=== PATIENT | female | born 1975 | race American Indian/Alaskan Native ===

== ENCOUNTER 2016-12-22 17:09 | Outpatient (CLI) | payer BC, MEDICAID ==
--- NOTE | 2016-12-23 08:21 | Ultrasound Report ---
BIOPHYSICAL PROFILE: INDICATION: well being. COMPARISON: None similar. TECHNIQUE: Transabdominal ultrasound with Doppler interrogation. 2 - breathing movements 2 - movements 2 - posture and tone 2 - Qualitative amniotic fluid volume 8 - TOTAL SCORE OF POSSIBLE 8 Heart Rate (bpm) 142
--- NOTE | 2016-12-23 08:27 | Ultrasound Report ---
OB ULTRASOUND GREATER THAN 14 WEEKS INDICATION: well being. COMPARISON: None similar. TECHNIQUE: Transabdominal grayscale ultrasound with Doppler interrogation. Gestation: Sil[place]re Position: Cephalic Amniotic Fluid: WNL (7-24 cm) JACOB = 14.4 cm Placenta: Anterior. Approximately 3 x 1.1 x 2.2 cm hypoechoic possible fibroid anterior to the placenta, images 14-18. Placental Grade: II Heart Rate: 142 BPM BPD: 9.1 cm = 36 w 6 d HC: 33.8 cm = 38 w 5 d AC: 34.4 cm = 38 w 2 d FL: 7.7 cm = 39 w 3 d HC/AC Ratio: 0.98 Cephalic Index: 83.4 Estimated Weight: 3493 grams Clinical age = 38 w 2 d EDC: 01/03/2017 US Gest. Age = 38 w 2 d EDC: 01/03/2017 CONCLUSION: Single, viable intrauterine gestation with ultrasound estimated age of 38 weeks and 2 days and EDC of 01/03/2017, currently in cephalic lie with details and few other findings, as above. Thank you for the opportunity to participate in this patient's care.
== END 2016-12-22 19:03 | disposition home or self-care (01) ==
LOC: TRG 17:09
PROVIDERS: ATTEND Obstetrics & Gynecology
DX: O09.523 Supervision of elderly multigravida, third trimester (principal); O47.1 False labor at or after 37 completed weeks of gestation; Z3A.38 38 weeks gestation of pregnancy
CPT/HCPCS: 76816; 76819

== ENCOUNTER 2016-12-30 20:30 | Inpatient (IN) | payer BC, MEDICAID ==
--- NOTE | 2016-12-30 22:31 | History and Physical Report ---
History of Present Illness Date of examination: 12/30/16 Date of admission: 12/30/16 20:30 History of present illness: Past History : 6 Term Births: 0 Premature Births: 1 Living Children: 1 Para: 1 Mult. Births: 0 Prev : 0 Aborta: 4 Elect. Ab: 3 Spont. Ab: 1 # 1 Delivery date: 1996 Weeks Gestation: 12w Delivery type: EAB # 2 Delivery date: 2008 Weeks Gestation: 35 Delivery type: Delivery location: [place] Sex: Female weight: 4#13 Comments: Induced for elevated b/p # 3 Delivery date: 2008 Weeks Gestation: 8w Delivery type: EAB # 4 Delivery date: 2011 Weeks Gestation: 6w Delivery type: EAB # 5 Delivery date: 2012 Weeks Gestation: 12w Delivery type: SAB Comments: no D&C Past Medical History: Hypertension hemauria - cleared through urology Past Surgical History: Appendectomy - 2004 Past Medical History Surgery (Non-bilingual instructor): Appendectomy - 2004 Abnormal PAP: negative GERONIMO Exposure: negative Infertility: negative Uterine Anomaly: negative Uterine Surgery (not C/S): negative Other Gynecologic Problems: negative Infection History Hx of STD: none HIV Risk Eval: no Hepatitis B Risk Eval: low risk Personal hx. of genital herpes: no Partner hx. of genital herpes: no Rash, Viral, or Febrile illness since last LMP? no Varicella/Chicken Pox Status: Previous Disease Genetic History ADVANCED MATERNAL AGE Congenital Heart Defect: Mom: no Dad: unknown Deondre Disease: Mom: no Dad: unknown Thalassemia Mom: no Dad: unknown Neural Tube Defect Mom: no Dad: unknown Down's Syndrome Mom: no Dad: unknown Mark Anthony-Sachs Mom: no Dad: unknown Sickle Cell Disease/Trait Mom: no Dad: unknown Hemophilia Mom: no Dad: unknown Muscular Dystrophy Mom: no Dad: unknown Cystic Fibrosis Mom: no Dad: unknown [place] Chorea Mom: no Dad: unknown Mental Retardation Mom: no Dad: unknown Fragile X Mom: no Dad: unknown Other Genetic/Chromosomal Disorder Mom: no Dad: unknown Child w/other defect Mom: no Dad: unknown Comments/Counseling: FOC adopted Enviromental Exposures Xray Exposure: no Medication, drug, or alcohol use since LMP: no Chemical/Other Exposure: no Exposure to Cat Liter: no Hx of Parvovirus (Fifth Disease): no Occupational Exposure to Children: none Current Allergies (reviewed today): No known allergies Past History - Obstetrical History Expected Date of Delivery: 01/03/17 Actual Gestation: 39 Week(s) 3 Day(s) : 6 Medications and Allergies Allergies Allergy/AdvReac Type Severity Reaction Status Date / Time No Known Allergies Allergy Unverified 12/22/16 18:57 Review of Systems All systems: negative - Vital Signs Vital signs: Vital Signs Pulse BP 86 142/76 12/30/16 21:41 12/30/16 21:41 Temp Pulse Resp BP Pulse Ox 92 H 151/81 89 12/30/16 22:25 12/30/16 22:13 12/30/16 22:25 - Physical Exam Breasts: Positive: deferred Cardiovascular: Regular rate Lungs: Positive: Clear to auscultation, Normal air movement Abdomen: Positive: other (obese) Genitourinary (Female): Positive: normal external genitalia, normal perenium Vulva: both: normal Uterus: Positive: other (difficult to palpate d/t body habitus) Anus/Rectum: Positive: normal perianal skin Extremities: Positive: edema (2+) Deep Tendon Reflex Grade: Normal +2 - Obstetrical FHR: category 1 Uterine Contraction Monitor Mode: External Cervical Dilatation: 0 Cervical Effacement Percentage: 0 station: 3 Uterine Contraction Frequency (min): -3 Uterine Contraction Pattern: Absent Results All other labs normal. Assessment and Plan - Patient Problems (1) 39 weeks gestation of Current Visit: Yes Status: Acute Plan to address problem: She admitted now for induction for CHTN controlled with Labetalol Cervidil (2) Hypertension affecting in third trimester Current Visit: Yes Status: Acute Plan to address problem: Continue Labetalol Check PIH labs (3) Advanced maternal age (AMA), 40 years or greater Current Visit: No Status: Acute (4) BMI 50.0-59.9, adult Current Visit: Yes Status: Acute
[2016-12-30] MEDS ORDERED: ZOFRAN IV PRN (22:38)
[2016-12-30] MEDS ORDERED: XYLOCAINE 2% INFILTRATI ONE (22:38)
[2016-12-30] MEDS ORDERED: MINERAL OIL PO PRN (22:38)
[2016-12-30] MEDS ORDERED: PHENERGAN PO PRN (22:38)
[2016-12-30] MEDS ORDERED: BRETHINE SUB-Q PRN (22:38)
[2016-12-30] MEDS ORDERED: ePHEDrine SULFATE IV PRN (22:38)
[2016-12-30] MEDS ORDERED: NARCAN 0.4 MG/1 ML IV PRN (22:38)
[2016-12-30] MEDS ORDERED: CERVIDIL VG ONE (22:38)
[2016-12-30] MEDS ORDERED: BRETHINE IVP PRN (22:38)
[2016-12-30] MEDS ORDERED: NUBAIN IV PRN (22:38)
[2016-12-30] MEDS ORDERED: STADOL IV PRN (22:38)
[2016-12-30] MEDS ORDERED: PITOCin/NS 20 UNIT/1000ML DRIP 20 UNITS/1,000 ML BAG IV SCH (23:00)
[2016-12-30 23:19] LABS: Hematocrit 34.6 % (30.3-42.9); Hemoglobin 11.2 gm/dl (10.1-14.3); Mean Corpuscular HGB Conc 32 % (30-34); Mean Corpuscular Hemoglobin 28 pg (28-32); Mean Corpuscular Volume 85 fl (79-97); Platelet Count 243 K/mm3 (140-440); Red Blood Count 4.09 M/mm3 (3.65-5.03); Red Cell Distribution Width 16.4 % (13.2-15.2); White Blood Count 10.4 K/mm3 (4.5-11.0)
[2016-12-30 23:42] LABS: Alanine Aminotransferase 16 units/L (7-56); Lactate Dehydrogenase 197 units/L (91-180); Uric Acid 5.2 mg/dL (3.5-7.6)
[2016-12-31 00:16] LABS: Bilirubin,Urine NEG (Negative); Blood,Urine MOD (Negative); Ketones,Urine NEG (Negative); Leukocyte Esterase,Urine NEG (Negative); Mucus,Urine FEW /HPF; Nitrite,Urine NEG (Negative); Protein,Urine <15 mg/dL mg/dL (Negative); Urobilinogen,Urine < 2.0 mg/dL (<2.0)
[2016-12-31] MEDS ORDERED: METHERGINE IM ONE (00:44)
--- NOTE | 2016-12-31 07:20 | Progress Note ---
Assessment and Plan Pt w/o complaint VSS FHR Category 1 Cervidil removed SVE 1-2,50,-2 OOB for AM care Breakfast P: will start pitocin per protocol @ 0900 aware of pt. Re-eval as needed Subjective - Subjective Date of service: 12/31/16 (cervidil removed) Patient reports: movement normal Objective - Vital Signs Vital Signs: Vital Signs - 12hr 12/30/16 12/30/16 12/30/16 21:41 21:45 21:50 Temperature Pulse Rate 86 85 93 H Respiratory Rate Blood Pressure 142/76 Blood Pressure [Right] O2 Sat by Pulse 96 96 Oximetry 12/30/16 12/30/16 12/30/16 21:55 21:57 22:00 Temperature Pulse Rate 99 H 89 91 H Respiratory Rate Blood Pressure Blood Pressure [Right] O2 Sat by Pulse 96 94 96 Oximetry 12/30/16 12/30/16 12/30/16 22:03 22:05 22:08 Temperature Pulse Rate 90 92 H 85 Respiratory Rate Blood Pressure Blood Pressure [Right] O2 Sat by Pulse 94 96 94 Oximetry 12/30/16 12/30/16 12/30/16 22:10 22:13 22:15 Temperature Pulse Rate 85 96 H 98 H Respiratory Rate Blood Pressure 151/81 Blood Pressure [Right] O2 Sat by Pulse 95 96 Oximetry 12/30/16 12/30/16 12/30/16 22:20 22:21 22:25 Temperature Pulse Rate 92 H 99 H 92 H Respiratory Rate Blood Pressure Blood Pressure [Right] O2 Sat by Pulse 95 94 89 Oximetry 12/30/16 12/30/16 12/30/16 22:34 22:35 22:39 Temperature Pulse Rate 100 H 96 H 94 H Respiratory Rate Blood Pressure 142/85 Blood Pressure [Right] O2 Sat by Pulse 96 96 Oximetry 12/30/16 12/30/16 12/30/16 22:43 22:58 23:05 Temperature 98.3 F Pulse Rate 90 93 H 93 H Respiratory 14 Rate Blood Pressure 143/85 141/83 Blood Pressure 141/83 [Right] O2 Sat by Pulse Oximetry 12/30/16 12/30/16 12/30/16 23:14 23:29 23:44 Temperature Pulse Rate 90 88 96 H Respiratory Rate Blood Pressure 146/71 138/75 140/83 Blood Pressure [Right] O2 Sat by Pulse Oximetry 12/30/16 12/31/16 12/31/16 23:59 00:13 00:28 Temperature Pulse Rate 94 H 92 H 99 H Respiratory Rate Blood Pressure 131/68 144/76 145/80 Blood Pressure [Right] O2 Sat by Pulse Oximetry 12/31/16 12/31/16 12/31/16 00:43 00:58 01:14 Temperature Pulse Rate 90 91 H 93 H Respiratory Rate Blood Pressure 133/74 131/71 88/66 Blood Pressure [Right] O2 Sat by Pulse Oximetry 12/31/16 12/31/16 12/31/16 01:29 01:43 01:58 Temperature Pulse Rate 88 88 83 Respiratory Rate Blood Pressure 144/85 141/81 144/78 Blood Pressure [Right] O2 Sat by Pulse Oximetry 12/31/16 12/31/16 12/31/16 02:13 02:28 02:43 Temperature Pulse Rate 88 86 91 H Respiratory Rate Blood Pressure 146/83 149/82 146/80 Blood Pressure [Right] O2 Sat by Pulse Oximetry 12/31/16 12/31/16 12/31/16 04:06 04:14 04:30 Temperature Pulse Rate 92 H 93 H 92 H Respiratory Rate Blood Pressure 138/73 130/68 146/72 Blood Pressure [Right] O2 Sat by Pulse Oximetry 12/31/16 12/31/16 12/31/16 04:45 05:00 05:13 Temperature Pulse Rate 83 92 H 88 Respiratory Rate Blood Pressure 140/79 141/82 147/80 Blood Pressure [Right] O2 Sat by Pulse Oximetry 12/31/16 12/31/16 12/31/16 05:28 05:45 06:00 Temperature Pulse Rate 86 84 86 Respiratory Rate Blood Pressure 143/77 144/77 141/75 Blood Pressure [Right] O2 Sat by Pulse Oximetry 12/31/16 12/31/16 06:15 07:14 Temperature Pulse Rate 95 H 92 H Respiratory Rate Blood Pressure 142/83 150/80 Blood Pressure [Right] O2 Sat by Pulse Oximetry - Exam Breasts: deferred Cardiovascular: Regular rate Lungs: Normal air movement Abdomen: Present: normal appearance, soft. Absent: distention, tenderness Uterus: Present: normal FHR: auscultation normal, category 1 Uterine Contraction Monitor Mode: External Cervical Dilatation: 1.5 Cervical Effacement Percentage: 50 station: -2 Uterine Contraction Pattern: Irregular Uterine Tone Measurement Phase: Resting Uterine Contraction Intensity: Mild Extremities: edema Deep Tendon Reflex Grade: Normal +2 - Labs Labs: Abnormal Labs 12/30/16 12/30/16 22:50 22:50 RDW 16.4 H Creatinine 0.6 L Lactate Dehydrogenase 197 H Laboratory Results - last 24 hr 12/30/16 12/30/16 12/30/16 22:50 22:50 22:50 WBC 10.4 RBC 4.09 Hgb 11.2 Hct 34.6 MCV 85 MCH 28 MCHC 32 RDW 16.4 H Plt Count 243 Creatinine 0.6 L Estimated GFR > 60 Uric Acid 5.2 AST 19 ALT 16 Lactate Dehydrogenase 197 H Urine Color Urine Turbidity Urine pH Ur Specific [place] Urine Protein Urine Glucose (UA) Urine Ketones Urine Blood Urine Nitrite Urine Bilirubin Urine Urobilinogen Ur Leukocyte Esterase Urine WBC (Auto) Urine RBC (Auto) U Epithel Cells (Auto) Urine Mucus Blood Type O POSITIVE Antibody Screen Negative 12/30/16 23:05 WBC RBC Hgb Hct MCV MCH MCHC RDW Plt Count Creatinine Estimated GFR Uric Acid AST ALT Lactate Dehydrogenase Urine Color Yellow Urine Turbidity Clear Urine pH 6.0 Ur Specific [place] 1.020 Urine Protein <15 mg/dl Urine Glucose (UA) Neg Urine Ketones Neg Urine Blood Mod Urine Nitrite Neg Urine Bilirubin Neg Urine Urobilinogen < 2.0 Ur Leukocyte Esterase Neg Urine WBC (Auto) 2.0 Urine RBC (Auto) 143.0 U Epithel Cells (Auto) 2.0 Urine Mucus Few Blood Type Antibody Screen
[2016-12-31] MEDS: PITOCin/NS 30 UNIT/500ML 30 UNITS/500 ML BAG IV SCH (09:16)
[2016-12-31] MEDS: NORMODYNE PO SCH ×2 (09:50→22:13)
--- NOTE | 2016-12-31 12:15 | Progress Note ---
Assessment and Plan Pt tolerating ctx well Pit @ 24mu SVE 1.5,40,-4 Discussed with pt serial induction. All questions addressed. Subjective - Subjective Date of service: 12/31/16 (tolerating ctx well) Patient reports: movement normal Objective - Vital Signs Vital Signs: Vital Signs - 12hr 12/31/16 12/31/16 12/31/16 00:13 00:28 00:43 Temperature Pulse Rate 92 H 99 H 90 Respiratory Rate Blood Pressure 144/76 145/80 133/74 Blood Pressure [Right] O2 Sat by Pulse Oximetry 12/31/16 12/31/16 12/31/16 00:58 01:14 01:29 Temperature Pulse Rate 91 H 93 H 88 Respiratory Rate Blood Pressure 131/71 88/66 144/85 Blood Pressure [Right] O2 Sat by Pulse Oximetry 12/31/16 12/31/16 12/31/16 01:43 01:58 02:13 Temperature Pulse Rate 88 83 88 Respiratory Rate Blood Pressure 141/81 144/78 146/83 Blood Pressure [Right] O2 Sat by Pulse Oximetry 12/31/16 12/31/16 12/31/16 02:28 02:43 04:06 Temperature Pulse Rate 86 91 H 92 H Respiratory Rate Blood Pressure 149/82 146/80 138/73 Blood Pressure [Right] O2 Sat by Pulse Oximetry 12/31/16 12/31/16 12/31/16 04:14 04:30 04:45 Temperature Pulse Rate 93 H 92 H 83 Respiratory Rate Blood Pressure 130/68 146/72 140/79 Blood Pressure [Right] O2 Sat by Pulse Oximetry 12/31/16 12/31/16 12/31/16 05:00 05:13 05:28 Temperature Pulse Rate 92 H 88 86 Respiratory Rate Blood Pressure 141/82 147/80 143/77 Blood Pressure [Right] O2 Sat by Pulse Oximetry 12/31/16 12/31/16 12/31/16 05:45 06:00 06:15 Temperature Pulse Rate 84 86 95 H Respiratory Rate Blood Pressure 144/77 141/75 142/83 Blood Pressure [Right] O2 Sat by Pulse Oximetry 12/31/16 12/31/16 12/31/16 07:14 07:15 09:19 Temperature 97.7 F Pulse Rate 92 H 98 H Respiratory 18 Rate Blood Pressure 150/80 139/70 Blood Pressure 150/80 [Right] O2 Sat by Pulse Oximetry 12/31/16 12/31/16 12/31/16 09:20 09:21 09:25 Temperature Pulse Rate 96 H 99 H 96 H Respiratory Rate Blood Pressure Blood Pressure [Right] O2 Sat by Pulse 94 94 96 Oximetry 12/31/16 12/31/16 12/31/16 09:30 09:35 09:40 Temperature Pulse Rate 97 H 96 H 95 H Respiratory Rate Blood Pressure 142/84 Blood Pressure [Right] O2 Sat by Pulse 95 96 96 Oximetry 12/31/16 12/31/16 12/31/16 09:44 09:45 09:50 Temperature Pulse Rate 93 H 96 H 98 H Respiratory Rate Blood Pressure 143/84 143/84 Blood Pressure [Right] O2 Sat by Pulse 94 94 95 Oximetry 12/31/16 12/31/16 12/31/16 09:51 09:55 09:57 Temperature Pulse Rate 102 H 96 H 102 H Respiratory Rate Blood Pressure Blood Pressure [Right] O2 Sat by Pulse 94 95 94 Oximetry 12/31/16 12/31/16 12/31/16 10:00 10:03 10:05 Temperature Pulse Rate 93 H 95 H 101 H Respiratory Rate Blood Pressure 139/80 Blood Pressure [Right] O2 Sat by Pulse 95 94 95 Oximetry 12/31/16 12/31/16 12/31/16 10:14 10:29 10:44 Temperature Pulse Rate 92 H 94 H 96 H Respiratory Rate Blood Pressure 154/94 152/77 140/75 Blood Pressure [Right] O2 Sat by Pulse Oximetry 12/31/16 12/31/16 12/31/16 11:21 11:23 11:24 Temperature 98.5 F Pulse Rate 91 H 87 92 H Respiratory Rate Blood Pressure 137/75 Blood Pressure 137/75 [Right] O2 Sat by Pulse 99 95 Oximetry 12/31/16 12/31/16 12/31/16 11:25 11:29 11:30 Temperature Pulse Rate 91 H 93 H 93 H Respiratory Rate Blood Pressure 121/75 Blood Pressure [Right] O2 Sat by Pulse 94 93 Oximetry 12/31/16 12/31/16 11:45 12:00 Temperature Pulse Rate 90 88 Respiratory Rate Blood Pressure 119/74 135/69 Blood Pressure [Right] O2 Sat by Pulse Oximetry - Exam Breasts: deferred Cardiovascular: Regular rate Lungs: Normal air movement Abdomen: Present: normal appearance, soft. Absent: distention, tenderness Uterus: Present: normal FHR: auscultation normal, category 1 Uterine Contraction Monitor Mode: External Cervical Dilatation: 1.5 Cervical Effacement Percentage: 40 station: -4 Uterine Contraction Pattern: Regular Uterine Contraction Intensity: Mild Extremities: edema Deep Tendon Reflex Grade: Normal +2 - Labs Labs: Abnormal Labs 12/30/16 12/30/16 22:50 22:50 RDW 16.4 H Creatinine 0.6 L Lactate Dehydrogenase 197 H Laboratory Results - last 24 hr 12/30/16 12/30/16 12/30/16 22:50 22:50 22:50 WBC 10.4 RBC 4.09 Hgb 11.2 Hct 34.6 MCV 85 MCH 28 MCHC 32 RDW 16.4 H Plt Count 243 Creatinine 0.6 L Estimated GFR > 60 Uric Acid 5.2 AST 19 ALT 16 Lactate Dehydrogenase 197 H Urine Color Urine Turbidity Urine pH Ur Specific [place] Urine Protein Urine Glucose (UA) Urine Ketones Urine Blood Urine Nitrite Urine Bilirubin Urine Urobilinogen Ur Leukocyte Esterase Urine WBC (Auto) Urine RBC (Auto) U Epithel Cells (Auto) Urine Mucus Blood Type O POSITIVE Antibody Screen Negative 12/30/16 23:05 WBC RBC Hgb Hct MCV MCH MCHC RDW Plt Count Creatinine Estimated GFR Uric Acid AST ALT Lactate Dehydrogenase Urine Color Yellow Urine Turbidity Clear Urine pH 6.0 Ur Specific [place] 1.020 Urine Protein <15 mg/dl Urine Glucose (UA) Neg Urine Ketones Neg Urine Blood Mod Urine Nitrite Neg Urine Bilirubin Neg Urine Urobilinogen < 2.0 Ur Leukocyte Esterase Neg Urine WBC (Auto) 2.0 Urine RBC (Auto) 143.0 U Epithel Cells (Auto) 2.0 Urine Mucus Few Blood Type Antibody Screen
[2016-12-31] MEDS ORDERED: LACTATED RINGERS 1,000 ML ONE ×2 (13:03→22:12)
[2016-12-31] MEDS: SUBLIMAZE IV PRN (13:05)
--- NOTE | 2016-12-31 16:53 | Progress Note ---
Assessment and Plan Ptin very good spirits SVE 1.5,50,-2 Pitocin off Ambulate, supper. Will start low dose pit @ 1999. All questions addressed with pt. aware and agrees with POC Subjective - Subjective Date of service: 12/31/16 (pitocin off ; low dose pit after PM care and supper) Patient reports: movement normal Objective - Vital Signs Vital Signs: Vital Signs - 12hr 12/31/16 12/31/16 12/31/16 04:45 05:00 05:13 Temperature Pulse Rate 83 92 H 88 Respiratory Rate Blood Pressure 140/79 141/82 147/80 Blood Pressure [Right] O2 Sat by Pulse Oximetry 12/31/16 12/31/16 12/31/16 05:28 05:45 06:00 Temperature Pulse Rate 86 84 86 Respiratory Rate Blood Pressure 143/77 144/77 141/75 Blood Pressure [Right] O2 Sat by Pulse Oximetry 12/31/16 12/31/16 12/31/16 06:15 07:14 07:15 Temperature 97.7 F Pulse Rate 95 H 92 H Respiratory 18 Rate Blood Pressure 142/83 150/80 Blood Pressure 150/80 [Right] O2 Sat by Pulse Oximetry 12/31/16 12/31/16 12/31/16 09:19 09:20 09:21 Temperature Pulse Rate 98 H 96 H 99 H Respiratory Rate Blood Pressure 139/70 Blood Pressure [Right] O2 Sat by Pulse 94 94 Oximetry 12/31/16 12/31/16 12/31/16 09:25 09:30 09:35 Temperature Pulse Rate 96 H 97 H 96 H Respiratory Rate Blood Pressure 142/84 Blood Pressure [Right] O2 Sat by Pulse 96 95 96 Oximetry 12/31/16 12/31/16 12/31/16 09:40 09:44 09:45 Temperature Pulse Rate 95 H 93 H 96 H Respiratory Rate Blood Pressure 143/84 Blood Pressure [Right] O2 Sat by Pulse 96 94 94 Oximetry 12/31/16 12/31/16 12/31/16 09:50 09:51 09:55 Temperature Pulse Rate 98 H 102 H 96 H Respiratory Rate Blood Pressure 143/84 Blood Pressure [Right] O2 Sat by Pulse 95 94 95 Oximetry 12/31/16 12/31/16 12/31/16 09:57 10:00 10:03 Temperature Pulse Rate 102 H 93 H 95 H Respiratory Rate Blood Pressure 139/80 Blood Pressure [Right] O2 Sat by Pulse 94 95 94 Oximetry 12/31/16 12/31/16 12/31/16 10:05 10:14 10:29 Temperature Pulse Rate 101 H 92 H 94 H Respiratory Rate Blood Pressure 154/94 152/77 Blood Pressure [Right] O2 Sat by Pulse 95 Oximetry 12/31/16 12/31/16 12/31/16 10:44 11:21 11:23 Temperature 98.5 F Pulse Rate 96 H 91 H 87 Respiratory Rate Blood Pressure 140/75 137/75 Blood Pressure 137/75 [Right] O2 Sat by Pulse 99 Oximetry 12/31/16 12/31/16 12/31/16 11:24 11:25 11:29 Temperature Pulse Rate 92 H 91 H 93 H Respiratory Rate Blood Pressure Blood Pressure [Right] O2 Sat by Pulse 95 94 93 Oximetry 12/31/16 12/31/16 12/31/16 11:30 11:45 12:00 Temperature Pulse Rate 93 H 90 88 Respiratory Rate Blood Pressure 121/75 119/74 135/69 Blood Pressure [Right] O2 Sat by Pulse Oximetry 12/31/16 12/31/16 15:44 15:47 Temperature 98.3 F Pulse Rate 86 Respiratory Rate Blood Pressure 134/74 Blood Pressure 134/74 [Right] O2 Sat by Pulse Oximetry - Exam Breasts: deferred Cardiovascular: Regular rate Abdomen: Present: normal appearance, soft. Absent: distention, tenderness Uterus: Present: normal FHR: auscultation normal, category 1 Uterine Contraction Monitor Mode: External Cervical Dilatation: 1.5 Cervical Effacement Percentage: 50 station: -2 Uterine Contraction Pattern: Regular Uterine Contraction Intensity: Mild Extremities: edema Deep Tendon Reflex Grade: Normal +2 - Labs Labs: Abnormal Labs 12/30/16 12/30/16 22:50 22:50 RDW 16.4 H Creatinine 0.6 L Lactate Dehydrogenase 197 H Laboratory Results - last 24 hr 12/30/16 12/30/16 12/30/16 22:50 22:50 22:50 WBC 10.4 RBC 4.09 Hgb 11.2 Hct 34.6 MCV 85 MCH 28 MCHC 32 RDW 16.4 H Plt Count 243 Creatinine Estimated GFR Uric Acid AST ALT Lactate Dehydrogenase Urine Color Urine Turbidity Urine pH Ur Specific [place] Urine Protein Urine Glucose (UA) Urine Ketones Urine Blood Urine Nitrite Urine Bilirubin Urine Urobilinogen Ur Leukocyte Esterase Urine WBC (Auto) Urine RBC (Auto) U Epithel Cells (Auto) Urine Mucus RPR Nonreactive Blood Type O POSITIVE Antibody Screen Negative 12/30/16 12/30/16 22:50 23:05 WBC RBC Hgb Hct MCV MCH MCHC RDW Plt Count Creatinine 0.6 L Estimated GFR > 60 Uric Acid 5.2 AST 19 ALT 16 Lactate Dehydrogenase 197 H Urine Color Yellow Urine Turbidity Clear Urine pH 6.0 Ur Specific [place] 1.020 Urine Protein <15 mg/dl Urine Glucose (UA) Neg Urine Ketones Neg Urine Blood Mod Urine Nitrite Neg Urine Bilirubin Neg Urine Urobilinogen < 2.0 Ur Leukocyte Esterase Neg Urine WBC (Auto) 2.0 Urine RBC (Auto) 143.0 U Epithel Cells (Auto) 2.0 Urine Mucus Few RPR Blood Type Antibody Screen
[2016-12-31] MEDS: AMBIEN PO PRN (22:13)
--- NOTE | 2017-01-01 08:20 | Progress Note ---
Assessment and Plan Pit off for diet and AM care. Pt OOB to chair for breakfast. BP 140-120/80-70 Will plan for pit per protocol, continue Labetalol po Eval as needed. Note: sve deferred until pt returns to bed after AM care. to be consulted Subjective - Subjective Date of service: 01/01/17 (low dose pit over night) Principal diagnosis: IUP @ 39w5d with CHTN; AMA ;BMI 50+ Day #2 IOL Patient reports: movement normal Objective - Vital Signs Vital Signs: Vital Signs - 12hr 12/31/16 12/31/16 12/31/16 20:50 20:55 20:57 Temperature Pulse Rate 97 H 90 95 H Respiratory Rate Blood Pressure Blood Pressure [Right] O2 Sat by Pulse 97 95 94 Oximetry 12/31/16 12/31/16 12/31/16 21:00 21:04 21:05 Temperature Pulse Rate 85 82 87 Respiratory Rate Blood Pressure Blood Pressure [Right] O2 Sat by Pulse 96 94 96 Oximetry 12/31/16 12/31/16 12/31/16 21:09 21:10 21:15 Temperature Pulse Rate 86 85 81 Respiratory Rate Blood Pressure Blood Pressure [Right] O2 Sat by Pulse 94 96 94 Oximetry 12/31/16 12/31/16 12/31/16 21:20 21:25 21:30 Temperature Pulse Rate 83 88 84 Respiratory Rate Blood Pressure Blood Pressure [Right] O2 Sat by Pulse 94 94 95 Oximetry 12/31/16 12/31/16 12/31/16 21:31 21:35 21:36 Temperature Pulse Rate 82 92 H 81 Respiratory Rate Blood Pressure Blood Pressure [Right] O2 Sat by Pulse 94 95 93 Oximetry 12/31/16 12/31/16 12/31/16 21:40 21:43 21:45 Temperature Pulse Rate 87 81 80 Respiratory Rate Blood Pressure Blood Pressure [Right] O2 Sat by Pulse 96 94 94 Oximetry 12/31/16 12/31/16 12/31/16 21:51 21:56 22:01 Temperature Pulse Rate 92 H 92 H 94 H Respiratory Rate Blood Pressure Blood Pressure [Right] O2 Sat by Pulse 96 96 98 Oximetry 12/31/16 12/31/16 12/31/16 22:06 22:11 22:13 Temperature Pulse Rate 93 H 91 H 90 Respiratory Rate Blood Pressure 123/72 Blood Pressure [Right] O2 Sat by Pulse 97 97 Oximetry 12/31/16 12/31/16 12/31/16 22:15 22:16 22:21 Temperature Pulse Rate 86 91 H 89 Respiratory Rate Blood Pressure 123/72 Blood Pressure [Right] O2 Sat by Pulse 97 97 Oximetry 12/31/16 12/31/16 12/31/16 22:26 22:31 22:36 Temperature Pulse Rate 85 88 91 H Respiratory Rate Blood Pressure Blood Pressure [Right] O2 Sat by Pulse 96 97 98 Oximetry 12/31/16 12/31/16 12/31/16 22:47 22:52 22:57 Temperature Pulse Rate 99 H 86 83 Respiratory Rate Blood Pressure Blood Pressure [Right] O2 Sat by Pulse 97 97 97 Oximetry 12/31/16 12/31/16 12/31/16 23:02 23:07 23:12 Temperature Pulse Rate 81 84 86 Respiratory Rate Blood Pressure Blood Pressure [Right] O2 Sat by Pulse 96 97 97 Oximetry 12/31/16 12/31/16 12/31/16 23:33 23:36 23:38 Temperature Pulse Rate 93 H 87 91 H Respiratory Rate Blood Pressure Blood Pressure [Right] O2 Sat by Pulse 97 94 98 Oximetry 12/31/16 01/01/17 01/01/17 23:43 01:35 01:38 Temperature 97.7 F Pulse Rate 94 H 83 Respiratory 18 Rate Blood Pressure 155/82 Blood Pressure [Right] O2 Sat by Pulse 95 Oximetry 01/01/17 01/01/17 07:05 07:09 Temperature 97 F L Pulse Rate 81 81 Respiratory 20 Rate Blood Pressure 142/80 Blood Pressure 142/80 [Right] O2 Sat by Pulse 100 Oximetry - Exam Breasts: deferred Cardiovascular: Regular rate Lungs: Normal air movement Abdomen: Present: normal appearance, soft. Absent: distention, tenderness Uterus: Present: normal FHR: auscultation normal, category 1 Uterine Contraction Monitor Mode: External Uterine Contraction Pattern: Irregular Uterine Contraction Intensity: Mild Extremities: edema Deep Tendon Reflex Grade: Normal +2 - Labs Labs: Abnormal Labs 12/30/16 12/30/16 22:50 22:50 RDW 16.4 H Creatinine 0.6 L Lactate Dehydrogenase 197 H Laboratory Results - last 24 hr 12/30/16 22:50 RPR Nonreactive
[2017-01-01] MEDS ORDERED: LACTATED RINGERS 1,000 ML ONE (09:14)
[2017-01-01] MEDS: NORMODYNE PO SCH ×2 (09:34→22:29)
[2017-01-01] MEDS: LACTATED RINGERS 1,000 ML IV SCH (09:38)
[2017-01-01] MEDS: PITOCin/NS 30 UNIT/500ML 30 UNITS/500 ML BAG IV SCH ×3 (09:39→12:02)
--- NOTE | 2017-01-01 10:55 | Event Note ---
Date: 01/01/17 (difficult to trace FHT; RN reports poss chg in position) Due to location of FHTs RN ask for me to check position. Bedside US done confirmed vertex. Discussed all options with pt continue IOL with pitocin today , poss Cervidil tonight. Pt asks not to have operative intervention at this time. Dr. Chavez is enroute. FHTs Cat 1 @ this time. Irregular ctx Pit @ 4mu.
--- NOTE | 2017-01-01 13:06 | Event Note ---
Date: 01/01/17 Pt seen and examined by me today 41 yo A4 at 39 wk with chronic HTN on meds (Labetolol 200mg bid) and morbid obesity undergoing IOL for chronic HTN at term. She has completes 36 hours of induction. Cx exam by me is 1.5 cm, 30%, -3 and vertex, which is apparently very little change so far. Membranes cannot be ruptured at this time. tracing is Cat 1 and contractions are still irregular but present. Her previous delivery in 2008 was at 35 wk of a 4#13oz baby and this baby is significantly larger--her last EFW by [facility] was 5#4oz done 6wks ago at 11/22/16. In addition she failed her 1 hour and had 1 abnormal value on a 3hr GTT. She also says that her BMI has increased significantly in the 9 years since her last delivery--BMI is 50 and she has gained about 30 pounds this .. I offered her the option of continuing induction for another 24 hours or a primary c/s for a failed induction. After reflection and discussion, she elects to continue with induction for another 24 hours with the understanding that I think she will most likely be a delivery then. She has signed consents for BTL in the office.
--- NOTE | 2017-01-01 18:03 | Event Note ---
Date: 01/01/17 (OOB ambulating) discussed previously Pitocin off PM care, dinner, and ambulation. Will place Cervidil @ 1999. Pt is in agreement All questions addressed.
[2017-01-01] MEDS ORDERED: CERVIDIL VG ONE (19:00)
[2017-01-01] MEDS: AMBIEN PO PRN (23:49)
[2017-01-02] MEDS: LACTATED RINGERS 1,000 ML IV SCH ×3 (06:39→20:46)
--- NOTE | 2017-01-02 08:58 | Progress Note ---
Assessment and Plan - Patient Problems (1) 39 weeks gestation of Current Visit: Yes Status: Acute (2) BMI 50.0-59.9, adult Current Visit: Yes Status: Acute (3) Hypertension affecting in third trimester Current Visit: Yes Status: Acute Plan to address problem: -currently on day #4 of serial iol -c/s d/w pt, she desires to con't IOL at this time and c/s for or maternal indications ie distress (4) Advanced maternal age (AMA), 40 years or greater Current Visit: No Status: Acute Subjective - Subjective Date of service: 01/02/17 Principal diagnosis: IUP @ 39w6d with CHTN; AMA ;BMI 50+ Day #2 IOL Interval history: Pt examined by myself and cx still basically unchanged with some with the exception of a little more effacement at 50%. Again as with had Dr. Chavez, I d/ w operative delivery via c/s due to failed induction. Pt at this time states she has accepted she may need a c/s but does not desire to stop IOL at this time. Will allow pericare and proceed with induction at this time. Several minutes spent at bedside d/w pt possible delivery outcomes vaginal vs c/s. Pt expressed no questions at this time. Patient reports: new complaints, movement normal Objective - Vital Signs Vital Signs: Vital Signs - 12hr 01/01/17 01/01/17 01/01/17 21:08 21:13 21:14 Temperature 98.2 F Pulse Rate 88 89 84 Respiratory 22 Rate Blood Pressure 140/74 Blood Pressure [Right] O2 Sat by Pulse 97 97 Oximetry 01/01/17 01/01/17 01/01/17 21:18 21:23 21:26 Temperature Pulse Rate 85 98 H 90 Respiratory Rate Blood Pressure 150/73 Blood Pressure [Right] O2 Sat by Pulse 96 98 Oximetry 01/01/17 01/01/17 01/01/17 21:28 21:33 21:38 Temperature Pulse Rate 82 84 84 Respiratory Rate Blood Pressure Blood Pressure [Right] O2 Sat by Pulse 96 96 97 Oximetry 01/01/17 01/01/17 01/01/17 21:43 21:48 21:52 Temperature Pulse Rate 79 78 83 Respiratory Rate Blood Pressure Blood Pressure [Right] O2 Sat by Pulse 96 95 94 Oximetry 01/01/17 01/01/17 01/01/17 21:53 21:58 22:03 Temperature Pulse Rate 77 77 75 Respiratory Rate Blood Pressure Blood Pressure [Right] O2 Sat by Pulse 95 98 96 Oximetry 01/01/17 01/01/17 01/01/17 22:07 22:08 22:13 Temperature Pulse Rate 76 76 72 Respiratory Rate Blood Pressure Blood Pressure [Right] O2 Sat by Pulse 94 96 96 Oximetry 01/01/17 01/01/17 01/01/17 22:16 22:18 22:23 Temperature Pulse Rate 72 76 76 Respiratory Rate Blood Pressure Blood Pressure [Right] O2 Sat by Pulse 94 96 95 Oximetry 01/01/17 01/01/17 01/01/17 22:27 22:28 22:29 Temperature Pulse Rate 102 H 77 80 Respiratory Rate Blood Pressure 152/78 Blood Pressure [Right] O2 Sat by Pulse 94 96 Oximetry 01/01/17 01/01/17 01/01/17 22:33 22:38 22:43 Temperature Pulse Rate 82 77 78 Respiratory Rate Blood Pressure Blood Pressure [Right] O2 Sat by Pulse 96 97 98 Oximetry 01/01/17 01/01/17 01/01/17 22:48 22:53 22:58 Temperature Pulse Rate 85 83 81 Respiratory Rate Blood Pressure Blood Pressure [Right] O2 Sat by Pulse 98 98 97 Oximetry 01/01/17 01/01/17 01/01/17 23:03 23:08 23:13 Temperature Pulse Rate 74 86 79 Respiratory Rate Blood Pressure Blood Pressure [Right] O2 Sat by Pulse 98 97 98 Oximetry 01/01/17 01/01/17 01/01/17 23:18 23:23 23:28 Temperature Pulse Rate 90 75 84 Respiratory Rate Blood Pressure 153/81 Blood Pressure [Right] O2 Sat by Pulse 97 97 96 Oximetry 01/01/17 01/01/17 01/01/17 23:31 23:33 23:38 Temperature 97.6 F Pulse Rate 77 77 86 Respiratory 20 Rate Blood Pressure 137/69 Blood Pressure [Right] O2 Sat by Pulse 96 97 Oximetry 01/01/17 01/02/17 01/02/17 23:57 00:02 00:07 Temperature Pulse Rate 88 84 93 H Respiratory Rate Blood Pressure Blood Pressure [Right] O2 Sat by Pulse 97 96 96 Oximetry 01/02/17 01/02/1717 00:12 00:17 00:22 Temperature Pulse Rate 96 H 91 H 86 Respiratory Rate Blood Pressure Blood Pressure [Right] O2 Sat by Pulse 97 97 96 Oximetry 01/02/17 01/02/17 01/02/17 00:27 00:32 00:37 Temperature Pulse Rate 90 91 H 83 Respiratory Rate Blood Pressure Blood Pressure [Right] O2 Sat by Pulse 96 97 95 Oximetry 01/02/17 01/02/17 01/02/17 00:39 00:42 00:45 Temperature Pulse Rate 84 84 84 Respiratory Rate Blood Pressure Blood Pressure [Right] O2 Sat by Pulse 94 92 92 Oximetry 01/02/17 01/02/17 01/02/17 00:47 00:51 00:52 Temperature Pulse Rate 98 H 91 H 83 Respiratory Rate Blood Pressure Blood Pressure [Right] O2 Sat by Pulse 97 91 95 Oximetry 01/02/17 01/02/17 01/02/17 00:57 00:58 01:02 Temperature Pulse Rate 84 81 86 Respiratory Rate Blood Pressure Blood Pressure [Right] O2 Sat by Pulse 89 93 83 L Oximetry 01/02/17 01/02/17 01/02/17 01:38 01:43 01:48 Temperature Pulse Rate 80 90 93 H Respiratory Rate Blood Pressure Blood Pressure [Right] O2 Sat by Pulse 84 97 95 Oximetry 01/02/17 01/02/17 01/02/17 01:50 01:53 01:55 Temperature Pulse Rate 85 85 87 Respiratory Rate Blood Pressure Blood Pressure [Right] O2 Sat by Pulse 93 96 94 Oximetry 01/02/17 01/02/17 01/02/17 01:58 02:02 02:03 Temperature Pulse Rate 85 87 83 Respiratory Rate Blood Pressure Blood Pressure [Right] O2 Sat by Pulse 93 92 95 Oximetry 01/02/17 01/02/17 01/02/17 02:08 02:11 02:13 Temperature Pulse Rate 84 82 86 Respiratory Rate Blood Pressure Blood Pressure [Right] O2 Sat by Pulse 93 93 92 Oximetry 01/02/17 01/02/17 01/02/17 02:17 02:18 02:23 Temperature Pulse Rate 89 96 H 84 Respiratory Rate Blood Pressure Blood Pressure [Right] O2 Sat by Pulse 94 96 93 Oximetry 01/02/17 01/02/17 01/02/17 02:24 02:28 02:29 Temperature Pulse Rate 84 95 H 86 Respiratory Rate Blood Pressure Blood Pressure [Right] O2 Sat by Pulse 94 90 93 Oximetry 01/02/17 01/02/17 01/02/17 02:33 02:36 02:38 Temperature Pulse Rate 82 85 86 Respiratory Rate Blood Pressure Blood Pressure [Right] O2 Sat by Pulse 92 93 75 L Oximetry 01/02/17 01/02/17 01/02/17 02:43 02:48 02:53 Temperature Pulse Rate 86 87 85 Respiratory Rate Blood Pressure Blood Pressure [Right] O2 Sat by Pulse 91 94 94 Oximetry 01/02/17 01/02/17 01/02/17 02:54 02:58 03:02 Temperature Pulse Rate 85 98 H 92 H Respiratory Rate Blood Pressure Blood Pressure [Right] O2 Sat by Pulse 94 95 94 Oximetry 01/02/17 01/02/17 01/02/17 03:03 03:08 03:11 Temperature Pulse Rate 87 88 84 Respiratory Rate Blood Pressure Blood Pressure [Right] O2 Sat by Pulse 96 95 94 Oximetry 01/02/17 01/02/17 01/02/17 03:13 03:17 03:18 Temperature Pulse Rate 85 96 H 82 Respiratory Rate Blood Pressure Blood Pressure [Right] O2 Sat by Pulse 95 93 94 Oximetry 01/02/17 01/02/17 01/02/17 03:23 03:28 03:33 Temperature Pulse Rate 82 85 83 Respiratory Rate Blood Pressure Blood Pressure [Right] O2 Sat by Pulse 92 94 94 Oximetry 01/02/17 01/02/17 01/02/17 03:38 03:43 03:47 Temperature Pulse Rate 83 85 82 Respiratory Rate Blood Pressure 144/74 Blood Pressure [Right] O2 Sat by Pulse 94 93 Oximetry 01/02/17 01/02/17 01/02/17 03:48 03:53 03:57 Temperature Pulse Rate 88 86 88 Respiratory Rate Blood Pressure Blood Pressure [Right] O2 Sat by Pulse 95 94 93 Oximetry 01/02/17 01/02/17 01/02/17 03:58 04:03 04:08 Temperature Pulse Rate 86 85 85 Respiratory Rate Blood Pressure Blood Pressure [Right] O2 Sat by Pulse 93 94 78 L Oximetry 01/02/17 01/02/17 01/02/17 04:14 04:15 04:19 Temperature Pulse Rate 89 88 86 Respiratory Rate Blood Pressure Blood Pressure [Right] O2 Sat by Pulse 95 94 96 Oximetry 01/02/17 01/02/17 01/02/17 04:24 04:29 04:34 Temperature Pulse Rate 94 H 87 86 Respiratory Rate Blood Pressure Blood Pressure [Right] O2 Sat by Pulse 96 88 98 Oximetry 01/02/17 01/02/17 01/02/17 04:39 04:42 04:44 Temperature Pulse Rate 86 86 80 Respiratory Rate Blood Pressure Blood Pressure [Right] O2 Sat by Pulse 96 94 97 Oximetry 01/02/17 01/02/17 01/02/17 04:49 04:54 04:59 Temperature Pulse Rate 88 82 86 Respiratory Rate Blood Pressure Blood Pressure [Right] O2 Sat by Pulse 97 96 96 Oximetry 01/02/17 01/02/17 01/02/17 05:04 05:09 05:11 Temperature Pulse Rate 87 102 H 94 H Respiratory Rate Blood Pressure Blood Pressure [Right] O2 Sat by Pulse 96 95 94 Oximetry 01/02/17 01/02/17 01/02/17 05:14 05:17 05:19 Temperature Pulse Rate 85 81 86 Respiratory Rate Blood Pressure Blood Pressure [Right] O2 Sat by Pulse 94 94 95 Oximetry 01/02/17 01/02/17 01/02/17 05:38 05:40 05:45 Temperature Pulse Rate 88 81 76 Respiratory Rate Blood Pressure 158/89 Blood Pressure [Right] O2 Sat by Pulse 100 100 Oximetry 01/02/17 01/02/17 01/02/17 05:50 05:55 06:00 Temperature Pulse Rate 88 90 91 H Respiratory Rate Blood Pressure Blood Pressure [Right] O2 Sat by Pulse 99 99 99 Oximetry 01/02/17 01/02/17 01/02/17 06:04 06:05 06:08 Temperature 97.6 F Pulse Rate 94 H 79 82 Respiratory 20 Rate Blood Pressure 119/63 Blood Pressure [Right] O2 Sat by Pulse 92 97 Oximetry 01/02/17 01/02/17 01/02/17 06:10 06:12 06:15 Temperature Pulse Rate 79 82 79 Respiratory Rate Blood Pressure Blood Pressure [Right] O2 Sat by Pulse 96 94 95 Oximetry 01/02/17 01/02/17 01/02/17 06:17 06:20 06:25 Temperature Pulse Rate 85 89 84 Respiratory Rate Blood Pressure Blood Pressure [Right] O2 Sat by Pulse 93 98 100 Oximetry 01/02/17 01/02/17 01/02/17 06:27 06:30 06:35 Temperature Pulse Rate 82 84 100 H Respiratory Rate Blood Pressure Blood Pressure [Right] O2 Sat by Pulse 93 99 91 Oximetry 01/02/17 01/02/17 01/02/17 06:40 06:45 06:50 Temperature Pulse Rate 96 H 105 H 91 H Respiratory Rate Blood Pressure Blood Pressure [Right] O2 Sat by Pulse 93 99 99 Oximetry 01/02/17 01/02/17 01/02/17 06:55 07:00 07:05 Temperature Pulse Rate 79 79 93 H Respiratory Rate Blood Pressure Blood Pressure [Right] O2 Sat by Pulse 100 100 99 Oximetry 01/02/17 01/02/17 07:08 07:10 Temperature 98.1 F Pulse Rate 88 88 Respiratory 20 Rate Blood Pressure 149/89 Blood Pressure 149/89 [Right] O2 Sat by Pulse 99 Oximetry - Exam Abdomen: Present: normal appearance, soft Vulva: both: normal FHR: category 2 Cervical Dilatation: 1.5 Cervical Effacement Percentage: 50 station: -3 Uterine Contraction Pattern: Irregular Uterine Tone Measurement Phase: Resting Uterine Contraction Intensity: Mild Extremities: normal - Labs Labs: Abnormal Labs 12/30/16 12/30/16 22:50 22:50 RDW 16.4 H Creatinine 0.6 L Lactate Dehydrogenase 197 H
[2017-01-02] MEDS: NORMODYNE PO SCH ×2 (11:54→23:34)
[2017-01-02] MEDS: PITOCin/NS 30 UNIT/500ML 30 UNITS/500 ML BAG IV SCH ×7 (13:29→18:29)
--- NOTE | 2017-01-02 17:17 | Progress Note ---
Assessment and Plan - Patient Problems (1) 39 weeks gestation of Current Visit: Yes Status: Acute (2) BMI 50.0-59.9, adult Current Visit: Yes Status: Acute (3) Hypertension affecting in third trimester Current Visit: Yes Status: Acute Plan to address problem: -con't with serial IOL -1+mec noted with cat 2 tracing at times but status overall reassuring. -will start increasing the pitocin again now that internal monitors have been placed -need for operative delivery via primary c/s was again d/w pt and for failure to progress, failed induction, intolerance, maternal indications.Both expressed understanding and desire to con't with IOL as there has been significant cx change since this am when I examined pt. Plan of care understoodand questions were addressed and answered. (4) Advanced maternal age (AMA), 40 years or greater Current Visit: No Status: Acute Subjective - Subjective Date of service: 01/02/17 Principal diagnosis: IUP @ 39w6d with CHTN; AMA ;BMI 50+ Day #2 IOL Interval history: AROM done due to cat II tracing and times and need to have internal monitors.1+ very light mec noted. IUPC and ISE placed w/o difficulty. Pt now states that previous with 4lb baby was a 3 day induciton. Cx now 2-/-2. Patient reports: new complaints, movement normal, contractions, no loss of fluid, no vaginal bleeding Objective - Vital Signs Vital Signs: Vital Signs - 12hr 01/02/17 01/02/17 01/02/17 05:17 05:19 05:38 Temperature Pulse Rate 81 86 88 Respiratory Rate Blood Pressure 158/89 Blood Pressure [Right] O2 Sat by Pulse 94 95 Oximetry 01/02/17 01/02/17 01/02/17 05:40 05:45 05:50 Temperature Pulse Rate 81 76 88 Respiratory Rate Blood Pressure Blood Pressure [Right] O2 Sat by Pulse 100 100 99 Oximetry 01/02/17 01/02/17 01/02/17 05:55 06:00 06:04 Temperature Pulse Rate 90 91 H 94 H Respiratory Rate Blood Pressure Blood Pressure [Right] O2 Sat by Pulse 99 99 92 Oximetry 01/02/17 01/02/17 01/02/17 06:05 06:08 06:10 Temperature 97.6 F Pulse Rate 79 82 79 Respiratory 20 Rate Blood Pressure 119/63 Blood Pressure [Right] O2 Sat by Pulse 97 96 Oximetry 01/02/17 01/02/17 01/02/17 06:12 06:15 06:17 Temperature Pulse Rate 82 79 85 Respiratory Rate Blood Pressure Blood Pressure [Right] O2 Sat by Pulse 94 95 93 Oximetry 01/02/17 01/02/17 01/02/17 06:20 06:25 06:27 Temperature Pulse Rate 89 84 82 Respiratory Rate Blood Pressure Blood Pressure [Right] O2 Sat by Pulse 98 100 93 Oximetry 01/02/17 01/02/17 01/02/17 06:30 06:35 06:40 Temperature Pulse Rate 84 100 H 96 H Respiratory Rate Blood Pressure Blood Pressure [Right] O2 Sat by Pulse 99 91 93 Oximetry 01/02/17 01/02/17 01/02/17 06:45 06:50 06:55 Temperature Pulse Rate 105 H 91 H 79 Respiratory Rate Blood Pressure Blood Pressure [Right] O2 Sat by Pulse 99 99 100 Oximetry 01/02/17 01/02/17 01/02/17 07:00 07:05 07:08 Temperature Pulse Rate 79 93 H 88 Respiratory Rate Blood Pressure 149/89 Blood Pressure [Right] O2 Sat by Pulse 100 99 Oximetry 01/02/17 01/02/17 01/02/17 07:10 11:27 11:53 Temperature 98.1 F Pulse Rate 88 87 88 Respiratory 20 Rate Blood Pressure 144/81 155/87 Blood Pressure 149/89 [Right] O2 Sat by Pulse 99 Oximetry 01/02/17 01/02/17 01/02/17 11:54 12:21 12:50 Temperature 97.4 F L Pulse Rate 88 82 81 Respiratory 20 Rate Blood Pressure 155/87 159/88 173/85 Blood Pressure 155/87 [Right] O2 Sat by Pulse Oximetry 01/02/17 01/02/17 01/02/17 13:01 13:28 13:31 Temperature Pulse Rate 83 82 77 Respiratory Rate Blood Pressure 161/79 151/87 154/84 Blood Pressure [Right] O2 Sat by Pulse Oximetry 01/02/17 01/02/17 01/02/17 14:03 14:30 14:57 Temperature Pulse Rate 83 87 87 Respiratory Rate Blood Pressure 152/84 137/83 140/85 Blood Pressure [Right] O2 Sat by Pulse Oximetry 01/02/17 01/02/17 01/02/17 15:00 15:30 16:01 Temperature 98.3 F Pulse Rate 81 76 83 Respiratory 20 Rate Blood Pressure 150/84 135/80 Blood Pressure 138/78 [Right] O2 Sat by Pulse Oximetry 01/02/17 01/02/17 01/02/17 16:02 16:30 17:02 Temperature Pulse Rate 83 82 112 H Respiratory Rate Blood Pressure 138/78 146/86 161/95 Blood Pressure [Right] O2 Sat by Pulse Oximetry - Exam FHR: category 2 Cervical Dilatation: 2.5 Cervical Effacement Percentage: 60 station: -3 Uterine Contraction Pattern: Irregular Uterine Tone Measurement Phase: Resting - Labs Labs: Abnormal Labs 12/30/16 12/30/16 22:50 22:50 RDW 16.4 H Creatinine 0.6 L Lactate Dehydrogenase 197 H
[2017-01-02] MEDS: SUBLIMAZE IV PRN (19:11)
--- NOTE | 2017-01-02 19:36 | Progress Note ---
Assessment and Plan - Patient Problems (1) 39 weeks gestation of Current Visit: Yes Status: Acute (2) BMI 50.0-59.9, adult Current Visit: Yes Status: Acute (3) Hypertension affecting in third trimester Current Visit: Yes Status: Acute Plan to address problem: -cont serial IOL -bolus for epidural going -no change in station with adequate contractions -there has been some cervical change but pt still not in active phase of labor. Early decels noted but overall, status is reassuring. (4) Advanced maternal age (AMA), 40 years or greater Current Visit: No Status: Acute Subjective - Subjective Date of service: 01/02/17 Principal diagnosis: IUP @ 39w6d with CHTN; AMA ;BMI 50+ Day #2 IOL Interval history: Pt c/o pain and now desires epidural. cx ex now 3-/-2.Early decels noted on NST. Patient reports: new complaints, movement normal, contractions, no loss of fluid, no vaginal bleeding Objective - Vital Signs Vital Signs: Vital Signs - 12hr 01/02/17 01/02/17 01/02/17 11:27 11:53 11:54 Temperature 97.4 F L Pulse Rate 87 88 88 Respiratory 20 Rate Blood Pressure 144/81 155/87 155/87 Blood Pressure 155/87 [Right] 01/02/17 01/02/17 01/02/17 12:21 12:50 13:01 Temperature Pulse Rate 82 81 83 Respiratory Rate Blood Pressure 159/88 173/85 161/79 Blood Pressure [Right] 01/02/17 01/02/17 01/02/17 13:28 13:31 14:03 Temperature Pulse Rate 82 77 83 Respiratory Rate Blood Pressure 151/87 154/84 152/84 Blood Pressure [Right] 01/02/17 01/02/17 01/02/17 14:30 14:57 15:00 Temperature Pulse Rate 87 87 81 Respiratory Rate Blood Pressure 137/83 140/85 150/84 Blood Pressure [Right] 01/02/17 01/02/17 01/02/17 15:30 16:01 16:02 Temperature 98.3 F Pulse Rate 76 83 83 Respiratory 20 Rate Blood Pressure 135/80 138/78 Blood Pressure 138/78 [Right] 01/02/17 01/02/17 01/02/17 16:30 17:02 17:30 Temperature Pulse Rate 82 112 H 89 Respiratory Rate Blood Pressure 146/86 161/95 147/93 Blood Pressure [Right] 01/02/17 01/02/17 01/02/17 18:00 18:02 18:29 Temperature 98.4 F Pulse Rate 83 83 85 Respiratory 20 Rate Blood Pressure 143/92 170/94 Blood Pressure 143/92 [Right] 01/02/17 01/02/17 01/02/17 18:35 19:00 19:11 Temperature Pulse Rate 83 79 Respiratory 16 Rate Blood Pressure 163/92 151/87 Blood Pressure [Right] 01/02/17 01/02/17 01/02/17 19:12 19:15 19:31 Temperature 98.5 F Pulse Rate 95 H 81 Respiratory Rate Blood Pressure 158/91 156/82 Blood Pressure [Right] - Exam FHR: category 2 Cervical Dilatation: 3.5 Cervical Effacement Percentage: 60 Uterine Contraction Frequency (min): -2 Uterine Contraction Pattern: Regular (mVUs are adequate at this time) - Labs Labs: Abnormal Labs 12/30/16 12/30/16 22:50 22:50 RDW 16.4 H Creatinine 0.6 L Lactate Dehydrogenase 197 H
[2017-01-02] MEDS ORDERED: ePHEDrine SULFATE ONE (19:53)
--- NOTE | 2017-01-02 20:27 | Anesthesia Consultation ---
Anesthesia Consult and Med Hx Date of service: 01/02/17 - Airway Anesthetic Teeth Evaluation: Good ROM Head & Neck: Adequate Mental/Hyoid Distance: Adequate Mallampati Class: Class II Intubation Access Assessment: Probably Good - Pulmonary Exam CTA: Yes - Cardiac Exam Cardiac Exam: RRR - Pre-Operative Health Status ASA Pre-Surgery Classification: ASA3 Proposed Anesthetic Plan: Epidural, Spinal - Pulmonary Hx Asthma: No COPD: No - Cardiovascular System Hx Hypertension: Yes (chronic hypertension) - Central Nervous System Hx Seizures: No Hx Psychiatric Problems: No - Endocrine Hx Renal Disease: No Hx End Stage Renal Disease: No Hx Hypothyroidism: No Hx Hyperthyroidism: No - Hematic Hx Anemia: No Hx Sickle Cell Disease: No - Other Systems Hx Alcohol Use: No Hx Obesity: Yes (bmi >40) - Additional Comments Anesthesia Medical History Comments: advanced maternal age, +IUP
[2017-01-02] MEDS ORDERED: ePHEDrine SULFATE IV PRN (20:31)
[2017-01-02] MEDS ORDERED: NARCAN 2 MG/2 ML IV PRN (20:31)
[2017-01-02] MEDS ORDERED: fentaNYL-BUPIV 2 MCG/ML-0.125% 200 MCG/100 ML BAG EPIDURAL SCH (21:00)
[2017-01-02] MEDS ORDERED: PEPCID IV ONE (21:02)
[2017-01-02] MEDS ORDERED: REGLAN IV ONE (21:02)
[2017-01-02] MEDS ORDERED: BICITRA PO ONE (21:02)
--- NOTE | 2017-01-02 21:07 | Event Note ---
Date: 01/02/17 Will proceed to OR for primary c/s due to failure to progress and persistent catII tracing with deep variable decels.All risk, benefits, and alternatives were d/w questions were addressed and answered. Consents signed and placed on the chart. Pt will also have tubal ligation with c/s.
[2017-01-02] MEDS ORDERED: XYLOCAINE MPF 2% ONE ×2 (21:28→21:41)
[2017-01-02] MEDS ORDERED: MORPHINE ONE (21:44)
[2017-01-02] MEDS ORDERED: WATER FOR IRRIG STERILE IR ONE (21:45)
[2017-01-02] MEDS ORDERED: ZOFRAN ONE (21:45)
[2017-01-02] MEDS ORDERED: NACL 0.9% IR ONE (21:45)
[2017-01-02] MEDS ORDERED: VERSED ONE ×2 (21:51→22:33)
[2017-01-02] MEDS ORDERED: PITOCin/NS 20 UNIT/1000ML DRIP 20 UNITS/1,000 ML BAG IV SCH (22:00)
[2017-01-02] MEDS ORDERED: ANCEF/STERILE WATER 2 GM/20 ML 2 GM/20 ML SYRINGE IV NR (22:00)
[2017-01-02] MEDS ORDERED: LACTATED RINGERS 1,000 ML IV SCH (22:00)
[2017-01-02] MEDS ORDERED: SUBLIMAZE ONE (22:45)
[2017-01-02] MEDS ORDERED: MYLICON PO PRN (22:58)
[2017-01-02] MEDS ORDERED: TUCKS PAD TP PRN (22:58)
[2017-01-02] MEDS ORDERED: LANSINOH TP PRN (22:58)
[2017-01-02] MEDS ORDERED: D5LR 1,000 ML IV SCH (23:00)
[2017-01-02] MEDS ORDERED: SODIUM CHLORIDE FLUSH SYRINGE 10 ML IV PRN (23:00)
[2017-01-02] MEDS ORDERED: BENADRYL IV PRN (23:12)
[2017-01-02] MEDS ORDERED: MORPHINE IV PRN ×2 (23:12)
--- NOTE | 2017-01-02 23:12 | Post Anesthesia Evaluation ---
- Post Anesthesia Evaluation Patient Participated: Yes Airway Patent: Yes Stable Respiratory Function: Yes Nausea/Vomiting: No Temp > 96.8F: Yes Pain Manageable: Yes Adequeate Hydration: Yes Anesthesia Complications: No Block Receding Appropriately: Yes Patient on Ventilator: No
[2017-01-02] MEDS: TORADOL IV PRN (23:21)
--- NOTE | 2017-01-02 23:24 | Operative Report ---
Operative Report Operative Report: Date of procedure: 01/02/2017 Pre-operative diagnosis: 39 weeks gestation Advanced maternal age Chronic hypertension Failure to progress Morbid obesity intolerance to labor Post-operative diagnosis: Same Procedure name(s): Primary low transverse section via Pfannenstiel skin incision Bilateral tubal ligation via modified Mickey method Surgeon: Dr. Farmer Talent Development Analyst: SHALOM Anesthesia: Epidural EBL: 900 mL Urine output: 100 mL of clear urine at end of the procedure Fluids: 1 L Findings: Liveborn female infant weight 7 lbs. 1 oz. Apgars of 8 and 9 at one and 5 minutes Grossly normal fallopian tubes and ovaries bilaterally Indications: Patient presented for induction of labor for chronic hypertension and advanced maternal age. Patient was noted to be on day 4 of labor induction and which she progressed approximately 3 cm. Patient noted to have repetitive variables without cervical change. Decision made at this time to proceed with primary section. Procedure: Patient was taking to the operating room. Patient was then prepped and draped in sterile fashion after anesthesia was found to be adequate. A low transverse skin incision was made with the scalpel and carried down to the underlying layer of fascia with the Bovie. The fascia was then incised in the midline and this incision was extended bilaterally with the Bovie. The superior aspect of the fascia was grasped with Geovanna clamps tented upward and dissected off of the anterior rectus muscles with the scalpel. In similar fashion the inferior aspect of the fascia was grasped with Geovanna clamps tented upward and dissected off of the anterior rectus muscles. The rectus muscles were then bluntly divided in the midline. The peritoneum was identified and entered into sharply. The Trae retractor was placed The bladder blade was placed. The bladder flap was created using the Metzenbaum scissors. The bladder blade was replaced. A lower transverse uterine incision was made with the scalpel and extended bilaterally with the bandage scissors. Entry into the uterus noted meconium-stained fluid. The infant's head was then delivered atraumatically. The anterior shoulder and rest of infant delivered without difficulty. The umbilical cord was clamped x2. The cord was cut. The was then placed in sterile bassinet. The cord blood was collected The placenta was manually extracted in its entirety. The uterus was exteriorized and cleared of all clots and debris. The uterine incision was closed using 0 Vicryl in a running locking fashion. [id number] sutures of 0 Vicryl were then created along the uterine incision to secure excellent hemostasis. Attention was turned to the fallopian use bilaterally and which they were grasp with the Marylou clamp. A knuckle of tube was then suture ligated, transected, and ostia cauterized. This was done bilaterally. Excellent hemostasis was noted. The posterior cul-de-sac was copiously irrigated. The uterus was returned to the abdomen. The Trae retractor was removed from the abdomen after the gutters were also irrigated. The anterior rectus muscles were reapproximated using 3-0 Vicryl. The anterior rectus fascia was reapproximated using 0 Vicryl in a running fashion. The subcuticular fat was reapproximated using 2-0 Vicryl in a running fashion. The skin was reapproximated with 4-0 Monocryl in a subcuticular stitch. The patient tolerated the procedure well. Sponge lap and needle counts were all correct x3. Patient was taken to the recovery room awake and in stable condition.
[2017-01-03] MEDS: ANCEF/NS 1 GM/50 ML 1 GM/50 ML BAG IV SCH ×2 (05:59→14:35)
--- NOTE | 2017-01-03 08:36 | Progress Note ---
Assessment and Plan patient doing well <12hrs postop, dressing dry, lochia scant, pain well controlled. Arias draining adequate urine. VSSAF. H&H to be drawn @ 11am. Continue postop pathway. - Patient Problems (1) delivery delivered Current Visit: Yes Status: Acute (2) HTN (hypertension) Current Visit: Yes Status: Acute Qualifiers: Hypertension type: essential hypertension Qualified Code(s): I10 - Essential (primary) hypertension Subjective - Subjective Date of service: 01/03/17 Principal diagnosis: postop day #1 s/p c/s; CHTN, AMA, BMI 50+, failed IOL Patient reports: appetite normal, pain well controlled, no flatus, no bowel movement, no nauseated : doing well, bottle feeding Objective - Vital Signs Latest vital signs: Vital Signs Temp Pulse Resp BP BP Pulse Ox 01/03/17 04:57 98.7 F 88 20 120/70 01/03/17 01:05 98.6 F 94 H 20 137/73 01/03/17 00:05 98.4 F 76 16 135/74 93 01/03/17 00:00 75 16 133/71 92 01/02/17 23:45 71 15 156/88 94 01/02/17 23:41 74 17 150/88 93 01/02/17 23:40 74 19 150/88 92 01/02/17 23:35 72 16 140/85 95 01/02/17 23:34 84 147/84 01/02/17 23:30 78 18 147/84 91 01/02/17 23:21 97 H 20 130/72 93 01/02/17 23:15 89 19 129/82 95 01/02/17 23:13 87 15 138/73 94 01/02/17 23:09 90 14 114/62 95 01/02/17 23:05 99.3 F 105 H 16 114/62 97 01/02/17 23:04 96 01/02/17 20:58 98 H 163/83 01/02/17 20:50 98.2 F 18 01/02/17 20:43 93 H 128/63 01/02/17 20:27 93 H 145/77 01/02/17 20:25 97 H 147/85 01/02/17 20:23 86 147/85 01/02/17 20:21 93 H 147/82 01/02/17 20:19 87 139/74 01/02/17 20:17 98 H 145/86 01/02/17 20:16 98 H 97 01/02/17 20:15 84 151/82 01/02/17 20:13 83 153/82 01/02/17 20:12 81 154/82 01/02/17 20:11 86 97 01/02/17 20:07 83 156/87 01/02/17 20:06 83 97 01/02/17 20:05 85 159/89 01/02/17 20:01 98 H 97 01/02/17 20:00 86 168/94 01/02/17 19:56 115 H 96 01/02/17 19:31 81 156/82 01/02/17 19:15 98.5 F 01/02/17 19:12 95 H 158/91 01/02/17 19:11 16 01/02/17 19:00 79 151/87 01/02/17 18:35 83 163/92 01/02/17 18:29 85 170/94 01/02/17 18:02 83 143/92 01/02/17 18:00 98.4 F 83 20 143/92 01/02/17 17:30 89 147/93 01/02/17 17:02 112 H 161/95 01/02/17 16:30 82 146/86 01/02/17 16:02 83 138/78 01/02/17 16:01 98.3 F 83 20 138/78 01/02/17 15:30 76 135/80 01/02/17 15:00 81 150/84 01/02/17 14:57 87 140/85 01/02/17 14:30 87 137/83 01/02/17 14:03 83 152/84 01/02/17 13:31 77 154/84 01/02/17 13:28 82 151/87 01/02/17 13:01 83 161/79 01/02/17 12:50 81 173/85 01/02/17 12:21 82 159/88 01/02/17 11:54 97.4 F L 88 20 155/87 155/87 01/02/17 11:53 88 155/87 01/02/17 11:27 87 144/81 Intake and Output 01/02/17 01/03/17 01/03/17 22:59 06:59 14:59 Intake Total 1633.333 360 Output Total 500 450 Balance 1133.333 -90 Intake: IV 1633.333 Lactated Ringers 1,000 ml 633.333 @ 125 mls/hr IV Q8H PENDING SALE TO [facility] Rx#:[id number] Intake, Free Water 360 Output: Urine 500 450 Indwelling Catheter 200 450 Void 200 Other: Total, Output Amount 200 450 Estimated Blood Loss 900 - Exam Breasts: Present: normal Cardiovascular: Present: Regular rate Lungs: Present: Clear to auscultation, Normal air movement Abdomen: Present: normal appearance, soft Uterus: Present: normal, firm, fundal height at umbilicus Extremities: Present: normal Incision: Present: normal, dry, dressed
[2017-01-03] MEDS: FEOSOL PO SCH (10:00)
[2017-01-03] MEDS: TORADOL IV PRN (10:19)
--- NOTE | 2017-01-03 10:26 | Progress Note ---
Subjective Date of service: 01/03/17 Principal diagnosis: postop day #1 s/p c/s; CHTN, AMA, BMI 50+, failed IOL Interval history: 1st POD after Patient is in the bed, comfortable. Pain is well controlled with pain meds. Has not ambulated yet. No residual neurological deficit. Pruritus is not significant. No anesthesia complications Objective - Constitutional Vitals: Vital Signs - 12hr 01/02/17 01/02/17 01/02/17 23:04 23:05 23:09 Temperature 99.3 F Pulse Rate 105 H 90 Respiratory 16 14 Rate Blood Pressure 114/62 114/62 Blood Pressure [Left] Blood Pressure [Right] O2 Sat by Pulse 96 97 95 Oximetry 01/02/17 01/02/17 01/02/17 23:13 23:15 23:21 Temperature Pulse Rate 87 89 97 H Respiratory 15 19 20 Rate Blood Pressure 138/73 129/82 130/72 Blood Pressure [Left] Blood Pressure [Right] O2 Sat by Pulse 94 95 93 Oximetry 01/02/17 01/02/17 01/02/17 23:30 23:34 23:35 Temperature Pulse Rate 78 84 72 Respiratory 18 16 Rate Blood Pressure 147/84 147/84 140/85 Blood Pressure [Left] Blood Pressure [Right] O2 Sat by Pulse 91 95 Oximetry 01/02/17 01/02/17 01/02/17 23:40 23:41 23:45 Temperature Pulse Rate 74 74 71 Respiratory 19 17 15 Rate Blood Pressure 150/88 150/88 156/88 Blood Pressure [Left] Blood Pressure [Right] O2 Sat by Pulse 92 93 94 Oximetry 01/03/17 01/03/17 01/03/17 00:00 00:05 01:05 Temperature 98.4 F 98.6 F Pulse Rate 75 76 94 H Respiratory 16 16 20 Rate Blood Pressure 133/71 135/74 Blood Pressure [Left] Blood Pressure 137/73 [Right] O2 Sat by Pulse 92 93 Oximetry 01/03/17 01/03/17 04:57 07:34 Temperature 98.7 F 98.6 F Pulse Rate 88 84 Respiratory 20 20 Rate Blood Pressure Blood Pressure 120/72 [Left] Blood Pressure 120/70 [Right] O2 Sat by Pulse Oximetry - Labs CBC & Chem 7: 12/30/16 22:50 12/30/16 22:50
[2017-01-03 13:11] LABS: Hematocrit 30.7 % (30.3-42.9)
[2017-01-03] MEDS: MOTRIN PO PRN (18:47)
[2017-01-03] MEDS: NORCO 5/325 PO PRN (18:48)
[2017-01-04] MEDS: NORCO 5/325 PO PRN ×2 (00:49→09:41)
[2017-01-04] MEDS: MOTRIN PO PRN ×2 (00:50→09:42)
[2017-01-04] MEDS ORDERED: BOOSTRIX IM ONE (06:00)
--- NOTE | 2017-01-04 06:25 | Discharge Summary ---
Providers - Providers Date of Admission: 12/30/16 20:30 Date of discharge: 01/04/17 (pt desires d/c ) Attending physician: YONATAN BLAIR Primary care physician: YONATAN BLAIR Hospitalization Reason for admission: induction of labor Delivery: Procedure: bilateral tubal ligation, primary low transverse Episiotomy: none Laceration: none Incision: normal, dry, intact Other procedures: none complications: none Discharge diagnosis: IUP at term delivered baby: female Hospital course: uncomplicated section Pt OOB to chair "I cannot be in the bed." VSS FF below umb Lochia scant Incision D&I Pt is not breast feeding Reviewed relieving factors for engorged breasts Pt voiced understanding H&H 02/13 drop r/t blood loss from surgery Pt is asymptomatic Doing well s/p section. P: D/C later today with instructions RTO Monday for BP check and Postop visit. RX provided Labetalol to be continued. Condition at discharge: Good Disposition: DC-01 TO HOME OR SELFCARE - Discharge Diagnoses (1) delivery delivered Status: Acute Comment: rto Monday for postop care and BP check Plan - Discharge Medications Prescriptions: Docusate Sodium [Colace] 100 mg PO BID PRN #30 capsule PRN Reason: Constipation Ferrous Sulfate [Feosol 325 MG tab] 325 mg PO QDAY #30 tablet Ibuprofen [Motrin 800 MG tab] 800 mg PO Q8HR PRN #30 tablet PRN Reason: Pain oxyCODONE /ACETAMINOPHEN [Percocet 5/325] 1 tab PO Q4HR #30 tab - Provider Discharge Summary Activity: routine, no sex for 6 weeks, no heavy lifting 4 weeks, no strenuous exercise Diet: routine Instructions: routine Additional instructions: [] Smoking cessation referral if applicable(refer to patient education folder for contact #) [] Refer to [facility] Booklet Call your doctor immediately for: * Fever > 100.5 * Heavy vaginal bleeding ( >1 pad per hour) * Severe persistent headache * Shortness of breath * Reddened, hot, painful area to leg or breast * Drainage or odor from incision. * Keep incision clean and dry at all times and follow doctor's instructions regarding bathing/showering - Follow up plan Follow up: YONATAN BLAIR MD [Primary Care Provider] - 01/09/17 (Congratulations! Please call [phone] to schedule your postoperative visit for MondayJanuary 09. Take medications as prescribed. Call with headache unrelieved with Tylenol, blurred vision, chest pain. Call with any concerns.)
[2017-01-04] MEDS: FEOSOL PO SCH (09:41)
[2017-01-04 14:17] VITALS: BP 132/83
== END 2017-01-04 14:00 | disposition home or self-care (01) | DRG 765 ==
LOC: LD 20:30 → APU 01-02 21:50 → OB 01-03 00:25
PROVIDERS: ADMIT Obstetrics & Gynecology; ATTEND Obstetrics & Gynecology
PROC: 10D00Z1 Extraction of Products of Conception, Low, Open Approach (ICD-10-PCS; principal; 2017-01-02)
PROC: 0UT70ZZ Resection of Bilateral Fallopian Tubes, Open Approach (ICD-10-PCS; 2017-01-02)
PROC: 10907ZC Drainage of Amniotic Fluid, Therapeutic from Products of Conception, Via Natural or Artificial Opening (ICD-10-PCS; 2017-01-02)
PROC: 3E0234Z Introduction of Serum, Toxoid and Vaccine into Muscle, Percutaneous Approach (ICD-10-PCS; 2017-01-04)
DX: O16.4 Unspecified maternal hypertension, complicating childbirth (principal); Z68.43 Body mass index [BMI] 50.0-59.9, adult; D62 Acute posthemorrhagic anemia; O76 Abnormality in fetal heart rate and rhythm complicating labor and delivery; E66.01 Morbid (severe) obesity due to excess calories; O99.214 Obesity complicating childbirth; O77.0 Labor and delivery complicated by meconium in amniotic fluid; Z3A.39 39 weeks gestation of pregnancy; Z23 Encounter for immunization; Z37.0 Single live birth; O99.02 Anemia complicating childbirth; O32.4XX0 Maternal care for high head at term, not applicable or unspecified
CPT/HCPCS: 36415; 59200; 81001; 82565; 83615; 84450; 84460; 84550; 85014; 85018; 85027; 86592; 86850; 86900; 86901; 88302; 88307; 90471; 90715; J0690; J1885; J2210; J2250; J2270; J2405; J2590; J2765; J3010; J7120; J7121

== ENCOUNTER 2017-01-10 18:34 | Emergency (ER) | payer BC, MEDICAID | END 2017-01-10 18:51 | disposition home or self-care (01) | LOC: ED 18:34 | DX: Z53.21 Procedure and treatment not carried out due to patient leaving prior to being seen by health care provider (principal) ==

== ENCOUNTER 2017-01-16 10:14 | Outpatient (CLI) | payer BC, MEDICAID ==
[2017-01-16] MEDS ORDERED: XYLOCAINE TOPICAL 4% TP ONE ×2 (11:03→16:14)
== END 2017-01-16 10:15 | disposition home or self-care (01) ==
LOC: WOUND 10:14
PROVIDERS: ATTEND Internal Medicine
DX: T81.89XA Other complications of procedures, not elsewhere classified, initial encounter (principal); I10 Essential (primary) hypertension; E66.01 Morbid (severe) obesity due to excess calories; Z68.43 Body mass index [BMI] 50.0-59.9, adult; Z87.891 Personal history of nicotine dependence; Y92.89 Other specified places as the place of occurrence of the external cause; Y83.8 Other surgical procedures as the cause of abnormal reaction of the patient, or of later complication, without mention of misadventure at the time of the procedure
CPT/HCPCS: 99215; G0463

== ENCOUNTER 2017-01-17 16:03 | Outpatient (CLI) | payer BC, MEDICAID ==
[2017-01-17 17:43] LABS: Blood Urea Nitrogen 9 mg/dL (7-17)
--- NOTE | 2017-01-17 19:35 | Cat Scan Report ---
FINAL REPORT EXAM: CT ABDOMEN PELVIS W CON HISTORY: ABDOMINAL PAIN AND ABSCESS TECHNIQUE: CT abdomen and pelvis with intravenous contrast PRIORS: None. FINDINGS: No acute abnormality identified in the lung bases. No focal abnormality identified within the liver parenchyma. The spleen demonstrates normal size and attenuation. No pancreatic abnormalities seen. The kidneys demonstrate symmetric contrast enhancement. No evidence of hydronephrosis. The adrenal glands are unremarkable Abdominal aorta is normal in caliber. No pathologically enlarged lymph nodes are identified. No signs of free fluid or free air No evidence of small bowel dilatation. Colon is nondistended. No pericolonic inflammatory change. Urinary bladder is unremarkable. At the lower anterior abdominal wall there is subcutaneous edema. There is a irregular collection containing multiple air bubbles measuring approximately 10.6 x 2.4 by 4.3 centimeters extending to deep subcutaneous soft tissues in bordering on the abdominal musculature. No intraperitoneal extension identified. IMPRESSION: Lower anterior abdominal wall abscess
== END 2017-01-17 16:04 | disposition home or self-care (01) ==
LOC: CT 16:03
PROVIDERS: ATTEND Internal Medicine
DX: L02.211 Cutaneous abscess of abdominal wall (principal); R10.9 Unspecified abdominal pain; R60.9 Edema, unspecified
CPT/HCPCS: 36415; 74177; 82565; 84520; Q9967

== ENCOUNTER 2017-01-25 09:20 | Outpatient (CLI) | payer BC, MEDICAID ==
[2017-01-25] MEDS ORDERED: XYLOCAINE TOPICAL 4% TP ONE ×2 (09:54→09:56)
== END 2017-01-25 09:21 | disposition home or self-care (01) ==
LOC: WOUND 09:20
PROVIDERS: ATTEND Surgery
DX: T81.89XD Other complications of procedures, not elsewhere classified, subsequent encounter (principal); E66.01 Morbid (severe) obesity due to excess calories; Z68.43 Body mass index [BMI] 50.0-59.9, adult; Z87.891 Personal history of nicotine dependence; Y83.8 Other surgical procedures as the cause of abnormal reaction of the patient, or of later complication, without mention of misadventure at the time of the procedure
CPT/HCPCS: 99214; G0463

== ENCOUNTER 2017-02-01 08:16 | Outpatient (CLI) | payer BC, MEDICAID ==
[2017-02-01] MEDS ORDERED: XYLOCAINE TOPICAL 4% TP ONE ×2 (09:00→09:04)
== END 2017-02-01 08:17 | disposition home or self-care (01) ==
LOC: WOUND 08:16
PROVIDERS: ATTEND Surgery
DX: T81.89XD Other complications of procedures, not elsewhere classified, subsequent encounter (principal); I10 Essential (primary) hypertension; E66.01 Morbid (severe) obesity due to excess calories; Z87.891 Personal history of nicotine dependence; Y83.8 Other surgical procedures as the cause of abnormal reaction of the patient, or of later complication, without mention of misadventure at the time of the procedure
CPT/HCPCS: 99214; G0463

== ENCOUNTER 2017-02-08 08:23 | Outpatient (CLI) | payer BC, MEDICAID ==
[2017-02-08] MEDS ORDERED: XYLOCAINE TOPICAL 4% TP ONE ×2 (08:37→08:43)
== END 2017-02-08 08:24 | disposition home or self-care (01) ==
LOC: WOUND 08:23
PROVIDERS: ATTEND Surgery
DX: T81.89XD Other complications of procedures, not elsewhere classified, subsequent encounter (principal); I10 Essential (primary) hypertension; E66.01 Morbid (severe) obesity due to excess calories; Z68.42 Body mass index [BMI] 45.0-49.9, adult; Z87.891 Personal history of nicotine dependence; Y83.8 Other surgical procedures as the cause of abnormal reaction of the patient, or of later complication, without mention of misadventure at the time of the procedure
CPT/HCPCS: 99214; G0463

== ENCOUNTER 2017-02-15 08:14 | Outpatient (CLI) | payer BC, MEDICAID ==
[2017-02-15] MEDS ORDERED: XYLOCAINE TOPICAL 4% TP ONE ×2 (08:40→08:42)
== END 2017-02-15 08:15 | disposition home or self-care (01) ==
LOC: WOUND 08:14
PROVIDERS: ATTEND Surgery
DX: T81.89XD Other complications of procedures, not elsewhere classified, subsequent encounter (principal); I10 Essential (primary) hypertension; E66.01 Morbid (severe) obesity due to excess calories; Z68.42 Body mass index [BMI] 45.0-49.9, adult; Y83.8 Other surgical procedures as the cause of abnormal reaction of the patient, or of later complication, without mention of misadventure at the time of the procedure; Z87.891 Personal history of nicotine dependence
CPT/HCPCS: 99214; G0463

== ENCOUNTER 2017-03-01 08:19 | Outpatient (CLI) | payer BC, MEDICAID ==
[2017-03-01] MEDS ORDERED: XYLOCAINE TOPICAL 4% TP ONE ×2 (08:37→08:40)
== END 2017-03-01 08:20 | disposition home or self-care (01) ==
LOC: WOUND 08:19
PROVIDERS: ATTEND Surgery
DX: T81.89XD Other complications of procedures, not elsewhere classified, subsequent encounter (principal); E66.01 Morbid (severe) obesity due to excess calories; Z68.42 Body mass index [BMI] 45.0-49.9, adult; Z87.891 Personal history of nicotine dependence; Y83.8 Other surgical procedures as the cause of abnormal reaction of the patient, or of later complication, without mention of misadventure at the time of the procedure
CPT/HCPCS: 99214; G0463

== ENCOUNTER 2017-03-08 08:33 | Outpatient (CLI) | payer BC, MEDICAID ==
[2017-03-08] MEDS ORDERED: XYLOCAINE TOPICAL 4% TP ONE ×2 (08:53→09:01)
== END 2017-03-08 08:34 | disposition home or self-care (01) ==
LOC: WOUND 08:33
PROVIDERS: ATTEND Surgery
DX: T81.89XD Other complications of procedures, not elsewhere classified, subsequent encounter (principal); E66.01 Morbid (severe) obesity due to excess calories; I10 Essential (primary) hypertension; Z87.891 Personal history of nicotine dependence; Y83.8 Other surgical procedures as the cause of abnormal reaction of the patient, or of later complication, without mention of misadventure at the time of the procedure
CPT/HCPCS: 97605

== ENCOUNTER 2017-03-15 08:26 | Outpatient (CLI) | payer BC, MEDICAID ==
[2017-03-15] MEDS ORDERED: XYLOCAINE TOPICAL 4% TP ONE (08:36)
== END 2017-03-15 08:27 | disposition home or self-care (01) ==
LOC: WOUND 08:26
PROVIDERS: ATTEND Surgery
DX: T81.89XD Other complications of procedures, not elsewhere classified, subsequent encounter (principal); I10 Essential (primary) hypertension; E66.01 Morbid (severe) obesity due to excess calories; Z68.42 Body mass index [BMI] 45.0-49.9, adult; Z87.891 Personal history of nicotine dependence; Y83.8 Other surgical procedures as the cause of abnormal reaction of the patient, or of later complication, without mention of misadventure at the time of the procedure
CPT/HCPCS: 99213; G0463